=== PATIENT | male | born 1940 | race Caucasian/White ===

== ENCOUNTER → 2017-10-22 09:53 | Outpatient (CLI) | payer MEDICARE, SELFPAY | PROVIDERS: PCP Family Medicine; Visit Provider Specialist | DX: K40.90 Unilateral inguinal hernia, without obstruction or gangrene, not specified as recurrent (principal); I48.91 Unspecified atrial fibrillation | CPT/HCPCS: 93005 ==

== ENCOUNTER 2017-11-06 10:54 | Day surgery (SDC) | payer MEDICARE, SELFPAY ==
[2017-11-06] VITALS (11 sets, daily range): BP systolic 145–187; BP diastolic 77–102; PULSE 70–84; RESP 10–16; TEMP 36–36.2; O2SAT 95–99; BMI 35.2
[2017-11-06] MEDS: LACTATED RINGERS 1,000 ML 100 ML IV (11:25)
--- NOTE | 2017-11-06 12:09 | PM.PREOP ---
Pre-operative Note Interval Note Pre-op Check: History & Physical Reviewed by Physician and Exam Performed H&P completed within 30 days and has changed as indicated here:: none
[2017-11-06] MEDS: CEFAZOLIN 2 GM/100 ML FROZ.PIGGY IV (13:10)
--- NOTE | 2017-11-06 13:30 | SUR.OPER ---
Supine on padded OR bed, head on pillow, arm padded and tucked at side, legs uncrossed, safety belt at thigh, tape over blanket over lower legs .
[2017-11-06] MEDS: BUPIVACAINE 0.5% (PF) 30 ML VIAL INJ (13:39)
--- NOTE | 2017-11-06 14:12 | PM.OP.1 ---
Operative Date/Time/Diagnoses - Date of procedure: 11/06/17 Time of procedure: 14:12 Post-op diagnosis: same (Indirect hernia) Procedure & Clinicians Procedure: Repair of right inguinal hernia with plug and patch technique Same procedure as scheduled: Yes Indications: Symptomatic hernia Surgeon: Brenden Wright Click Yes if Unassisted: Yes Anesthesia Type: General Operative Notes Findings: Indirect hernia Closure Type: primary Specimen(s): none sent Implants & Drains: Mesh Estimated Blood Loss (mL): 5 Blood products transfused: none Procedure in detail: The patient was placed supine on the operating room table and underwent general LMA anesthesia. He was prepped and draped in the usual fashion. A transverse incision was made overlying the internal ring and carried down to the level of the external oblique. The external oblique was opened parallel with its fibers through the external ring. The cord structures were elevated. The cremaster was opened proximally and search made for an indirect sac. There was a large sac identified and from surrounding structures. It was opened and found to have no contents. Was suture ligated with 2 0 silk at the level of the deep epigastric vessels. The distal portion was transected and removed and the stump was allowed to retract. A large plug was placed in the defect created by this hernia. It was tacked into place with interrupted 0 Tycron sutures. The floor was examined and was found to be weakened. A patch was placed across the floor and tacked at the pubic tubercle, the posterior lamella of the anterior rectus sheath, the ilioinguinal ligament, and superior lateral to the cord. The opening was modified as necessary to prevent tight constriction of the cord. Sutures of 0 Tycron were used to secure the mesh. The external oblique was closed with a running 3 0 Polysorb. The subcu was closed with interrupted 3 0 Polysorb. The skin was closed with a running 4 0 Polysorb subcuticular stitch and Steri-Strips. Dressing was applied, the patient was awakened, and the patient was taken to the recovery area in good condition. Complications: none Condition: stable Disposition: PACU Plan for aftercare: Follow-up in office in about 10-14 days
--- NOTE | 2017-11-06 14:16 | P.OP_ITS ---
Operative Date/Time/Diagnoses - Date of procedure: 11/06/17 Time of procedure: 14:12 Post-op diagnosis: same (Indirect hernia) Procedure & Clinicians Procedure: Repair of right inguinal hernia with plug and patch technique Same procedure as scheduled: Yes Indications: Symptomatic hernia Surgeon: Brenden Wright Click Yes if Unassisted: Yes Anesthesia Type: General Operative Notes Findings: Indirect hernia Closure Type: primary Specimen(s): none sent Implants & Drains: Mesh Estimated Blood Loss (mL): 5 Blood products transfused: none Procedure in detail: The patient was placed supine on the operating room table and underwent general LMA anesthesia. He was prepped and draped in the usual fashion. A transverse incision was made overlying the internal ring and carried down to the level of the external oblique. The external oblique was opened parallel with its fibers through the external ring. The cord structures were elevated. The cremaster was opened proximally and search made for an indirect sac. There was a large sac identified and from surrounding structures. It was opened and found to have no contents. Was suture ligated with 2 0 silk at the level of the deep epigastric vessels. The distal portion was transected and removed and the stump was allowed to retract. A large plug was placed in the defect created by this hernia. It was tacked into place with interrupted 0 Tycron sutures. The floor was examined and was found to be weakened. A patch was placed across the floor and tacked at the pubic tubercle , the posterior lamella of the anterior rectus sheath, the ilioinguinal ligament , and superior lateral to the cord. The opening was modified as necessary to prevent tight constriction of the cord. Sutures of 0 Tycron were used to secure the mesh. The external oblique was closed with a running 3 0 Polysorb. The subcu was closed with interrupted 3 0 Polysorb. The skin was closed with a running 4 0 Polysorb subcuticular stitch and Steri-Strips. Dressing was applied , the patient was awakened, and the patient was taken to the recovery area in good condition. Complications: none Condition: stable Disposition: PACU Plan for aftercare: Follow-up in office in about 10-14 days
[2017-11-06] MEDS: fentaNYL 100 MCG/2 ML INJ 50 MCG IV (14:21)
[2017-11-06] MEDS: OXYCODONE/ACETAMINOPHEN 5/325 TABLET 1 TAB PO ×2 (14:44→14:53)
== END 2017-11-06 15:39 ==
PROVIDERS: PCP Family Medicine; Visit Provider Specialist
PROC: (CPT 49505; principal; 2017-11-06 12:00)
DX: K40.90 Unilateral inguinal hernia, without obstruction or gangrene, not specified as recurrent (principal); I48.91 Unspecified atrial fibrillation; Z79.01 Long term (current) use of anticoagulants
CPT/HCPCS: 49505; C1781; J0690; J1100; J2405; J2704; J3010

== ENCOUNTER → 2017-11-20 13:54 | Outpatient (CLI) | payer MEDICARE, SELFPAY ==
[2017-11-20 15:28] LABS: Prostate Specific Antigen Scrn 0.113 ng/mL (0.1-4.0)
== END ==
PROVIDERS: PCP Family Medicine; Visit Provider Specialist
DX: N40.0 Benign prostatic hyperplasia without lower urinary tract symptoms (principal)
CPT/HCPCS: 36415; G0103

== ENCOUNTER → 2018-03-04 11:51 | Outpatient (CLI) | payer MEDICARE, SELFPAY ==
[2018-03-04 12:58] LABS: Alanine Aminotransferase 26 IU/L (21-72); Albumin 3.8 g/dL (3.5-5.0); Albumin Globulin Ratio 1.4 (1.0-2.8); Alkaline Phosphatase 46 U/L (38-126); Aspartate Aminotransferase 26 IU/L (17-59); BUN Creatinine Ratio 16.3 (6-22); Bilirubin Total 0.5 mg/dL (0.2-1.3); Blood Urea Nitrogen 13 mg/dL (9-20); Carbon Dioxide 28 mmol/L (22-32); Chloride 103 mmol/L (98-107); Estimated Glomerular Filt Rate > 60.0 mL/min (>60); Globulin 2.7 g/dL (1.7-4.1); Glucose 94 mg/dL (80-110); HEMOLYSIS < 15 (0-50); Potassium 4.9 mmol/L (3.4-5.1); Sodium 140 mmol/L (137-145); Total Protein 6.5 g/dL (6.3-8.2)
[2018-03-04 13:37] LABS: Thyroid Stimulating Hormone 1.28 uIU/mL (0.47-4.68)
== END ==
PROVIDERS: PCP Family Medicine; Visit Provider Family Medicine
DX: I10 Essential (primary) hypertension (principal); I48.91 Unspecified atrial fibrillation; Z51.81 Encounter for therapeutic drug level monitoring
CPT/HCPCS: 36415; 80053; 84443

== ENCOUNTER → 2019-06-27 16:25 | Outpatient (CLI) | payer MEDICARE, SELFPAY ==
--- NOTE | 2019-06-27 16:27 | DI.RAD.S_ITS ---
PROCEDURE: XR SHOULDER LT MIN 2V INDICATIONS: Progressive left shoulder pain TECHNIQUE: 3 views of the shoulder were acquired. COMPARISON: [facility], , SHOULDER 1 VIEW LEFT, 05/09/2016, 10:39. FINDINGS: Bones: Grossly unchanged appearance of reverse polarity left shoulder arthroplasty. Hardware appears intact. No fracture. Previous postsurgical soft tissue changes appear improved Soft tissues: No suspicious soft tissue calcifications. IMPRESSION: Unchanged alignment Dictated by: Taiwo Arizmendi M.D. on 06/27/2019 at 17:56 Approved by: Taiwo Arizmendi M.D. on 06/27/2019 at 17:57
== END ==
PROVIDERS: PCP Family Medicine; Visit Provider Family Medicine
DX: M25.512 Pain in left shoulder (principal); G89.4 Chronic pain syndrome
CPT/HCPCS: 73030

== ENCOUNTER → 2019-11-27 11:02 | Outpatient (CLI) | payer MEDICARE, SELFPAY ==
--- NOTE | 2019-11-27 11:05 | DI.RAD.S_ITS ---
PROCEDURE: XR SHOULDER LT MIN 2V INDICATIONS: shoulder pain post total replacement TECHNIQUE: 3 views of the shoulder were acquired. COMPARISON: [facility], CR, SHOULDER MIN 2VW (LT), 10/14/2014, 8:38. [facility], CR, XR SHOULDER LT MIN 2V, 06/27/2019, 16:27. [facility], CR, SHOULDER 1 VIEW LEFT, 05/09/2016, 10:39. FINDINGS: Bones: No fractures or dislocations. No suspicious bony lesions. A curvilinear osseous component of the acromium appears positioned above the humeral arthroplasty upper margin, separate from the scapula as was previously the case 06/27/19. Visualized ribs appear intact. Soft tissues: No suspicious soft tissue calcifications. IMPRESSION: Stable postoperative change after left total shoulder arthroplasty, no evidence of device loosening or disruption of the arthroplasty components. Dictated by: Dallin Kirby M.D. on 11/27/2019 at 12:11 Approved by: Dallin Kirby M.D. on 11/27/2019 at 12:14
== END ==
PROVIDERS: PCP Family Medicine; Referring Provider Family Medicine; Visit Provider Family Medicine
DX: M25.512 Pain in left shoulder (principal); Z96.612 Presence of left artificial shoulder joint
CPT/HCPCS: 73030

== ENCOUNTER → 2020-03-31 16:52 | Outpatient (CLI) | payer MEDICARE, SELFPAY ==
[2020-03-31 17:53] LABS: Add Manual Diff / Slide Review NO; Basophils Absolute Auto 100 /uL (0-100); Basophils Percent Auto 0.9 % (0-2); Eosinophils Absolute Auto 300 /uL (0-450); Hematocrit 37.5 % (41-53); Hemoglobin 12.3 g/dL (13.5-17.5); Lymphocytes Absolute Auto 1800 /uL (1100-4500); Lymphocytes Percent Auto 28.5 % (25-40); Mean Corpuscular HGB Conc 32.8 % (30-36); Mean Corpuscular Hemoglobin 30.4 PG (26-34); Mean Corpuscular Volume 92.5 fL (80-100); Monocytes Absolute Auto 700 /uL (0-900); Monocytes Percent Auto 10.3 % (3-14); Neutrophils Absolute Auto 3600 /uL (1500-7000); Neutrophils Percent Auto 56.3 % (50-75); Platelet Count 217 X10^3/uL (150-400); Red Blood Cell Count 4.06 X10^6/uL (4.5-5.9); Red Cell Distribution Width 14.1 % (11.6-14.8); White Blood Cell Count 6.4 X10^3/uL (4.5-11.0)
[2020-03-31 18:28] LABS: Alanine Aminotransferase 13 IU/L (<50); Albumin 3.9 g/dL (3.5-5.0); Albumin Globulin Ratio 1.6 (1.0-2.8); Alkaline Phosphatase 59 U/L (38-126); Aspartate Aminotransferase 25 IU/L (17-59); BUN Creatinine Ratio 19.2 (6-22); Bilirubin Total 0.6 mg/dL (0.2-1.3); Blood Urea Nitrogen 19 mg/dL (9-20); Calcium 8.9 mg/dL (8.4-10.2); Carbon Dioxide 30 mmol/L (22-32); Chloride 99 mmol/L (98-107); Estimated Glomerular Filt Rate > 60.0 mL/min (>60); Globulin 2.4 g/dL (1.7-4.1); Glucose 90 mg/dL (80-110); HEMOLYSIS < 15 (0-50); Potassium 4.8 mmol/L (3.4-5.1); Sodium 133 mmol/L (137-145); Total Protein 6.3 g/dL (6.3-8.2)
== END ==
PROVIDERS: PCP Family Medicine; Referring Provider Family Medicine; Visit Provider Family Medicine
DX: R10.11 Right upper quadrant pain (principal)
CPT/HCPCS: 36415; 80053; 85025

== ENCOUNTER → 2020-04-12 07:59 | Outpatient (CLI) | payer MEDICARE, SELFPAY ==
--- NOTE | 2020-04-12 08:00 | DI.US.S_ITS ---
PROCEDURE: US ABDOMEN LIMITED INDICATIONS: RIGHT UPPER QUADRANT ABDOMINAL PAIN TECHNIQUE: Real-time scanning was performed of the abdominal, with image documentation. COMPARISON: [facility], US, ABDOMEN LIMITED, 05/15/2017, 11:13. FINDINGS: Liver: Normal in size. Increased in echogenicity. Portal vein demonstrates expected hepatopetal flow. Gallbladder: Nondilated. A thin layer of echogenic debris. No shadowing or twinkle artifact. No mobility is demonstrated. Normal gallbladder wall thickness. No pericholecystic fluid. Negative sonographic Pelletier's sign. Biliary ducts: Intrahepatic bile ducts are non-dilated. Extrahepatic bile duct caliber measures 5 mm. Normal is 6-7 mm or less in diameter, or 10 mm or less post-cholecystectomy. Pancreas: Not well seen. Spleen: Spleen is normal in size and homogeneous in echotexture. Right kidney: No hydronephrosis. IMPRESSION: 1. No acute cholecystitis. 2. A small amount of gallbladder sludge. No gallstones identified. 3. No biliary ductal dilatation seen. 4. Increased hepatic echogenicity most consistent with hepatic steatosis. Other forms of hepatocellular disease could have similar appearance. Dictated by: Adrián Weller M.D. on 04/12/2020 at 9:32 Approved by: Adrián Weller M.D. on 04/12/2020 at 9:36
== END ==
PROVIDERS: PCP Family Medicine; Referring Provider Family Medicine; Visit Provider Family Medicine
DX: R10.11 Right upper quadrant pain (principal); K83.8 Other specified diseases of biliary tract
CPT/HCPCS: 76705

== ENCOUNTER → 2020-04-26 09:33 | Outpatient (CLI) | payer MEDICARE, SELFPAY | PROVIDERS: PCP Family Medicine; Referring Provider Family Medicine; Visit Provider Family Medicine | DX: Z12.5 Encounter for screening for malignant neoplasm of prostate (principal); N40.0 Benign prostatic hyperplasia without lower urinary tract symptoms | CPT/HCPCS: 36415; 84153 ==

== ENCOUNTER → 2020-08-02 17:19 | Outpatient (CLI) | payer MEDICARE, SELFPAY ==
[2020-08-04 07:34] LABS: Rubeola Measles IgG > 300.0 AU/mL (Immune >16.4)
== END ==
PROVIDERS: PCP Family Medicine; Referring Provider Family Medicine; Visit Provider Family Medicine
DX: Z01.84 Encounter for antibody response examination (principal)
CPT/HCPCS: 36415; 86765

== ENCOUNTER → 2020-08-23 10:46 | Outpatient (CLI) | payer MEDICARE, SELFPAY ==
--- NOTE | 2020-08-23 10:47 | DI.RAD.S_ITS ---
PROCEDURE: XR CHEST 2V INDICATIONS: Progressive shortness of breath, coarse breath sounds on exa TECHNIQUE: 2 views of the chest were acquired. COMPARISON: [facility], , CHEST 2 VIEW, 08/17/2016, 16:35. [facility], , CHEST 1 VIEW, 05/31/2014, 6:47. FINDINGS: Surgical changes and devices: Left total shoulder arthroplasty. Moderately severe right shoulder arthritis.. Lungs and pleura: Lungs are clear. No pleural effusions or pneumothorax. Mediastinum: Mediastinal contours are normal. Heart size is normal. Bones and chest wall: No suspicious bony abnormalities. Soft tissues appear unremarkable. IMPRESSION: No acute disease, prior left total shoulder arthroplasty. Source of current symptoms is not seen. Dictated by: Dallin Kirby M.D. on 08/23/2020 at 13:36 Approved by: Dallin Kirby M.D. on 08/23/2020 at 13:38
== END ==
PROVIDERS: PCP Family Medicine; Referring Provider Family Medicine; Visit Provider Family Medicine
DX: R05 Cough (principal); R06.02 Shortness of breath
CPT/HCPCS: 71046

== ENCOUNTER → 2021-01-21 10:00 | Outpatient (CLI) | payer MEDICARE, SELFPAY ==
[2021-01-21 16:37] LABS: Alanine Aminotransferase 17 IU/L (<50); Albumin 3.6 g/dL (3.5-5.0); Albumin Globulin Ratio 1.3 (1.0-2.8); Alkaline Phosphatase 55 U/L (38-126); Aspartate Aminotransferase 26 IU/L (17-59); BUN Creatinine Ratio 15.7 (6-22); Bilirubin Total 0.6 mg/dL (0.2-1.3); Blood Urea Nitrogen 14 mg/dL (9-20); Calcium 9.2 mg/dL (8.4-10.2); Carbon Dioxide 26 mmol/L (22-32); Chloride 99 mmol/L (98-107); Estimated Glomerular Filt Rate > 60.0 mL/min (>60); Globulin 2.8 g/dL (1.7-4.1); Glucose 101 mg/dL (80-110); HEMOLYSIS < 15 (0-50); Potassium 4.5 mmol/L (3.4-5.1); Sodium 130 mmol/L (137-145); Total Protein 6.4 g/dL (6.3-8.2)
[2021-01-22 09:38] LABS: PSA, Total 0.5 ng/mL (0.0-4.0)
== END ==
PROVIDERS: PCP Family Medicine; Referring Provider Family Medicine; Visit Provider Family Medicine
DX: R33.9 Retention of urine, unspecified (principal); Z12.5 Encounter for screening for malignant neoplasm of prostate; N40.0 Benign prostatic hyperplasia without lower urinary tract symptoms
CPT/HCPCS: 36415; 80053; 84153; 84154

== ENCOUNTER → 2021-08-04 11:39 | Outpatient (CLI) | payer MEDICARE, SELFPAY ==
[2021-08-04 12:51] LABS: Appearance Urine UA CLEAR; Bilirubin Urine UA NEGATIVE (NEGATIVE); Color Urine UA YELLOW; Glucose Urine UA NEGATIVE (Negative); Ketones Urine UA NEGATIVE (NEGATIVE); Leukocyte Esterase Urine UA NEGATIVE (NEGATIVE); Nitrite Urine UA NEGATIVE (Negative); Occult Blood Urine UA NEGATIVE (Negative); Protein Urine UA NEGATIVE (Negative); Specific Gravity Urine UA <=1.005 (1.000-1.035); Urobilinogen Urine UA 0.2 E.U./dL (0.2)
[2021-08-04 12:59] LABS: Bacteria Urine None Seen; RBC Urine None Seen (0-5/HPF); Urine Comments Microscopic Normal; WBC Urine None Seen (0-5/HPF)
[2021-08-04 13:00] LABS: Culture Indicated Urine Cult Not Indicated
== END ==
PROVIDERS: PCP Family Medicine; Referring Provider Urology; Visit Provider Urology
DX: R30.0 Dysuria (principal); R35.0 Frequency of micturition
CPT/HCPCS: 81001

== ENCOUNTER → 2021-08-11 10:49 | Outpatient (CLI) | payer MEDICARE, SELFPAY ==
--- NOTE | 2021-08-11 10:52 | DI.RAD.S_ITS ---
PROCEDURE: XR HUMERUS LT 2V INDICATIONS: left arm pain after fall TECHNIQUE: 2 views of the humerus were acquired. COMPARISON: None. FINDINGS: Bones: No fractures or dislocations. No suspicious bony lesions. Total left shoulder arthroplasty hardware intact. Soft tissues: No suspicious soft tissue calcifications. IMPRESSION: Total left shoulder arthroplasty hardware in place. No hardware failure or loosening. No fracture. Approved by: Omid East M.D. on 08/11/2021 at 13:49
--- NOTE | 2021-08-11 10:52 | DI.RAD.S_ITS ---
PROCEDURE: XR SHOULDER LT MIN 2V INDICATIONS: left arm pain after fall TECHNIQUE: 3 views of the shoulder were acquired. COMPARISON: [facility], CR, XR SHOULDER LT MIN 2V, 11/27/2019, 11:13. FINDINGS: Bones: Again noted is prior reverse left shoulder arthroplasty. Left shoulder alignment is unchanged from prior study. No gross hardware loosening or failure. No fractures or dislocations. No suspicious bony lesions. Visualized ribs appear intact. Soft tissues: No suspicious soft tissue calcifications. IMPRESSION: Prior left shoulder arthroplasty. No acute fracture or dislocation. No gross hardware complication. Dictated by: Jacob Yan M.D. on 08/11/2021 at 11:52 Approved by: Jacob Yan M.D. on 08/11/2021 at 11:53
== END ==
PROVIDERS: PCP Family Medicine; Referring Provider Family Medicine; Visit Provider Family Medicine
DX: M79.602 Pain in left arm (principal); Z96.612 Presence of left artificial shoulder joint
CPT/HCPCS: 73030; 73060

== ENCOUNTER → 2021-09-22 09:44 | Outpatient (CLI) | payer MEDICARE, SELFPAY | PROVIDERS: PCP Family Medicine; Visit Provider Urology | DX: R30.0 Dysuria (principal); N40.0 Benign prostatic hyperplasia without lower urinary tract symptoms; R33.9 Retention of urine, unspecified; R35.1 Nocturia; R39.198 Other difficulties with micturition | CPT/HCPCS: 51798; 81002; 87086; 99213 ==

== ENCOUNTER → 2021-10-11 08:31 | Outpatient (CLI) | payer MEDICARE, SELFPAY ==
[2021-10-11 09:11] LABS: INR 1.3 (0.9-1.3)
== END ==
PROVIDERS: PCP Family Medicine; Referring Provider Family Medicine; Visit Provider Family Medicine
DX: Z79.01 Long term (current) use of anticoagulants (principal)
CPT/HCPCS: 36415; 85610

== ENCOUNTER → 2022-01-16 11:10 | Outpatient (CLI) | payer MEDICARE, SELFPAY ==
[2022-01-16 13:10] LABS: INR 1.7 (0.9-1.3); Prothrombin Time 19.2 SECONDS (10.1-12.7)
[2022-01-16 13:31] LABS: Alanine Aminotransferase 10 IU/L (<50); Albumin 3.4 g/dL (3.5-5.0); Albumin Globulin Ratio 1.2 (1.0-2.8); Alkaline Phosphatase 48 U/L (38-126); Aspartate Aminotransferase 24 IU/L (17-59); Bilirubin Total 0.6 mg/dL (0.2-1.3); Blood Urea Nitrogen 7 mg/dL (9-20); Calcium 8.5 mg/dL (8.4-10.2); Carbon Dioxide 28 mmol/L (22-32); Chloride 100 mmol/L (98-107); Estimated Glomerular Filt Rate > 60 mL/min (>60); Globulin 2.8 g/dL (1.7-4.1); Glucose 99 mg/dL (80-110); HEMOLYSIS < 15 (0-50); Potassium 4.4 mmol/L (3.4-5.1); Sodium 131 mmol/L (137-145); Total Protein 6.2 g/dL (6.3-8.2)
[2022-01-19 06:00] LABS: PSA Free % 56.7 % (.); PSA, Total 0.3 ng/mL (0.0-4.0)
== END ==
PROVIDERS: PCP Family Medicine; Referring Provider Family Medicine; Visit Provider Family Medicine
DX: Z79.01 Long term (current) use of anticoagulants (principal); N40.0 Benign prostatic hyperplasia without lower urinary tract symptoms; R33.9 Retention of urine, unspecified; R34 Anuria and oliguria
CPT/HCPCS: 36415; 80053; 84153; 84154; 85610

== ENCOUNTER → 2022-02-14 11:39 | Outpatient (CLI) | payer MEDICARE, SELFPAY ==
--- NOTE | 2022-02-14 11:41 | DI.CT.S_ITS ---
PROCEDURE: CT CHEST WO CON INDICATIONS: course breath sounds, weight loss, smoking history TECHNIQUE: Noncontrast 5 mm thick sections acquired from the pulmonary apices to the posterior costophrenic angles. 1 mm lung window, 5 mm thick coronal and sagittal and 7 mm axial MIP reformats were then acquired. For radiation dose reduction, the following was used: automated exposure control, adjustment of mA and/or kV according to patient size. COMPARISON: [facility], CR, XR CHEST 2V, 08/23/2020, 10:50. FINDINGS: Image quality: Diagnostic. Lungs and pleura: Mild upper lobe predominant pulmonary emphysematous changes. There is bilateral mild perihilar airway thickening predominantly in the bilateral lower lobes, right greater than left. There is associated peripheral bronchiectasis of the posteromedial right lower lobe as well as the medial left lower lobe. Associated reticular prominence in the posterior aspect of the lower lobes bilaterally. There is also suggestion of faint tree-in-bud opacities involving the posterior aspect of the bilateral lower lobes as well as the posterior right middle lobe and posterior right upper lobe. No septal thickening or nodularity. A few ill-defined patchy consolidations of the posterior left lower lobe are noted. For example a 7 mm left lower lobe ill-defined nodule seen on image 214/series 4. No pleural effusions or pneumothorax. Central and peripheral airways are patent. Mediastinum: Heart size is mildly enlarged. No pericardial effusion. Moderate atherosclerotic calcifications of the coronary arteries. No mediastinal adenopathy by size criteria. Thoracic aorta and central pulmonary arteries are normal in size. Aortic arch atherosclerotic calcifications. Esophagus is normal in caliber. No hiatal hernia. Bones and chest wall: No suspicious bony lesions. No acute vertebral body compression fractures. No axillary or supraclavicular adenopathy by size criteria. Thyroid gland is unremarkable . Status post left shoulder arthroplasty Abdomen: Visualized upper abdominal solid organs and bowel loops appear normal in the absence of contrast. IMPRESSION: 1. Suggestion of multiple foci of faint tree-in-bud opacities involving the posterior aspect of the bilateral lower lobes, posterior right middle lobe, and posterior right upper lobe with associated mild bronchiectasis of the posterior lower lobes . There is also mild bilateral perihilar airway thickening predominantly seen in the lower lobes. Findings may represent sequela of chronic aspiration or other infectious/inflammatory process. There also a few scattered ill-defined nodular densities in the bilateral lower lobes which may represent inflammatory or infectious nodules such as an atypical mycobacterial infection. Recommend clinical correlation as well as short interval follow-up CT in 3-6 months. 2. Mild upper lobe predominant pulmonary emphysema. 3. Mild cardiomegaly. 4. Moderate atherosclerosis. Dictated by: Marco A Ponce M.D. on 02/14/2022 at 13:41 Approved by: Marco A Ponce M.D. on 02/14/2022 at 13:54
== END ==
PROVIDERS: PCP Family Medicine; Referring Provider Family Medicine; Visit Provider Family Medicine
DX: J43.9 Emphysema, unspecified (principal); R63.4 Abnormal weight loss; R09.89 Other specified symptoms and signs involving the circulatory and respiratory systems; R91.8 Other nonspecific abnormal finding of lung field; Z87.891 Personal history of nicotine dependence; I51.7 Cardiomegaly; I70.0 Atherosclerosis of aorta
CPT/HCPCS: 71250

== ENCOUNTER → 2022-03-28 15:32 | Outpatient (CLI) | payer MEDICARE, SELFPAY ==
[2022-03-28 17:41] LABS: Influenza A - CEPHEID Flu A NEGATIVE (NEGATIVE); Influenza B - CEPHEID Flu B NEGATIVE (NEGATIVE); Respiratory Syncytial Virus Negative (Negative)
[2022-03-28 17:59] LABS: COVID-19 CEPHEID PCR (VTM/NP) Negative (Negative)
== END ==
PROVIDERS: PCP Family Medicine; Visit Provider Student in an Organized Health Care Education/Training Program
DX: R05.9 Cough, unspecified (principal); R06.89 Other abnormalities of breathing
CPT/HCPCS: 0241U

== ENCOUNTER → 2022-03-28 16:01 | Outpatient (CLI) | payer MEDICARE, SELFPAY ==
--- NOTE | 2022-03-28 16:08 | DI.RAD.S_ITS ---
PROCEDURE: XR CHEST 2V INDICATIONS: rhonchi, possible aspiration pna TECHNIQUE: 2 views of the chest were acquired. COMPARISON: [facility], , XR CHEST 2V, 08/23/2020, 10:50. FINDINGS: Surgical changes and devices: None. Lungs and pleura: Lungs are clear. No pleural effusions or pneumothorax. The lung volumes are large and the diaphragms are flattened suggesting emphysema. Mediastinum: Mediastinal contours are normal. Heart size is normal. Bones and chest wall: No suspicious bony abnormalities. Soft tissues appear unremarkable. IMPRESSION: No acute cardiopulmonary findings. Emphysematous change. Dictated by: Brooke Yoo M.D. on 03/28/2022 at 16:51 Approved by: Brooke Yoo M.D. on 03/28/2022 at 16:52
== END ==
PROVIDERS: PCP Family Medicine; Referring Provider Student in an Organized Health Care Education/Training Program; Visit Provider Student in an Organized Health Care Education/Training Program
DX: R05.9 Cough, unspecified (principal); R06.89 Other abnormalities of breathing; R53.83 Other fatigue; R09.89 Other specified symptoms and signs involving the circulatory and respiratory systems
CPT/HCPCS: 0241U; 36415; 71046; 80053; 84145; 85025

== ENCOUNTER → 2022-03-28 16:28 | Outpatient (CLI) | payer MEDICARE, SELFPAY ==
[2022-03-28 16:56] LABS: Add Manual Diff / Slide Review NO; Basophils Absolute Auto 0 /uL (0-100); Basophils Percent Auto 0.7 % (0-2); Eosinophils Absolute Auto 200 /uL (0-450); Eosinophils Percent Auto 3.6 % (2-4); Hematocrit 35.7 % (41-53); Hemoglobin 12.2 g/dL (13.5-17.5); Lymphocytes Absolute Auto 1200 /uL (1100-4500); Lymphocytes Percent Auto 19.6 % (25-40); Mean Corpuscular HGB Conc 34.1 % (30-36); Mean Corpuscular Hemoglobin 30.7 PG (26-34); Mean Corpuscular Volume 89.9 fL (80-100); Monocytes Absolute Auto 600 /uL (0-900); Monocytes Percent Auto 9.8 % (3-14); Neutrophils Absolute Auto 4000 /uL (1500-7000); Neutrophils Percent Auto 66.3 % (50-75); Platelet Count 318 X10^3/uL (150-400); Red Blood Cell Count 3.97 X10^6/uL (4.5-5.9)
[2022-03-28 17:19] LABS: Alanine Aminotransferase 17 IU/L (<50); Albumin 3.8 g/dL (3.5-5.0); Albumin Globulin Ratio 1.1 (1.0-2.8); Alkaline Phosphatase 69 U/L (38-126); Aspartate Aminotransferase 25 IU/L (17-59); BUN Creatinine Ratio 11.7 (6-22); Bilirubin Total 0.5 mg/dL (0.2-1.3); Blood Urea Nitrogen 11 mg/dL (9-20); Calcium 8.8 mg/dL (8.4-10.2); Carbon Dioxide 27 mmol/L (22-32); Chloride 95 mmol/L (98-107); Estimated Glomerular Filt Rate > 60 mL/min (>60); Globulin 3.6 g/dL (1.7-4.1); Glucose 115 mg/dL (80-110); HEMOLYSIS < 15 (0-50); Potassium 4.2 mmol/L (3.4-5.1); Sodium 132 mmol/L (137-145); Total Protein 7.4 g/dL (6.3-8.2)
[2022-03-28 17:34] LABS: Procalcitonin 0.03 ng/mL (<0.5)
== END ==
PROVIDERS: PCP Family Medicine; Referring Provider Student in an Organized Health Care Education/Training Program; Visit Provider Student in an Organized Health Care Education/Training Program
DX: R05.9 Cough, unspecified (principal); R09.89 Other specified symptoms and signs involving the circulatory and respiratory systems; R53.83 Other fatigue
CPT/HCPCS: 36415; 80053; 84145; 85025

== ENCOUNTER → 2022-10-17 09:08 | Outpatient (CLI) | payer MEDICARE, OTHER, SELFPAY ==
--- NOTE | 2022-10-17 09:10 | DI.US.S_ITS ---
PROCEDURE: US ABDOMEN LIMITED INDICATIONS: LEFT INGUINAL BULGE TECHNIQUE: Real-time focused scanning was performed of the abdomen, with image documentation. COMPARISON: [facility], CT, PELVIS WITHOUT CONTRAST, 06/08/2017, 8:53. [facility], US, US ABDOMEN LIMITED, 04/12/2020, 8:29. FINDINGS: At the area of clinical concern within the left inguinal region, there is a hernia seen which contains a bowel loop, which moves with Valsalva maneuver and measures 6.1 x 1.8 x 3.3 cm. There is a 1.2 cm fascial defect. IMPRESSION: Reducible bowel containing left inguinal hernia. Surgical consultation is recommended. If clinically appropriate, a pelvis CT with at least IV contrast may be helpful for further evaluation. Dictated by: Solomon Silva M.D. on 10/17/2022 at 11:14 Approved by: Solmoon Silva M.D. on 10/17/2022 at 11:17
== END ==
PROVIDERS: PCP Family Medicine; Referring Provider Family Medicine; Visit Provider Family Medicine
DX: K40.90 Unilateral inguinal hernia, without obstruction or gangrene, not specified as recurrent (principal); R19.00 Intra-abdominal and pelvic swelling, mass and lump, unspecified site
CPT/HCPCS: 76705

== ENCOUNTER 2022-11-14 10:35 | Day surgery (SDC) | payer MEDICARE, OTHER, SELFPAY ==
[2022-11-09 08:40] VITALS: BMI 18.8
[2022-11-14] VITALS (9 sets, daily range): BP systolic 175–217; BP diastolic 81–98; PULSE 61–67; RESP 9–19; TEMP 36.2–36.8; O2SAT 93–100; BMI 18.8
[2022-11-14] MEDS: LACTATED RINGERS 1,000 ML 42 ML IV (11:32)
--- NOTE | 2022-11-14 11:40 | PM.PREOP ---
Pre-operative Note COVID-19 COVID-19 status: Not tested Interval Note History & Physical reviewed/Exam performed by Physician: Yes Changes to H&P: No ASA Class (for procedural sedation): III
[2022-11-14] MEDS: CEFAZOLIN 2 GM/100 ML PREMIX 100 ML IV (12:43)
--- NOTE | 2022-11-14 12:57 | SUR.OPER ---
Supine on padded OR bed, head on pillow, arms secured on padded arm boards at <90 degrees abduction, legs uncrossed, safety belt at thigh, tape over blanket over lower legs.
[2022-11-14] MEDS: BUPIVACAINE 0.5% (PF) 30 ML, EPINEPHrine 0.15 MG INJ (13:04)
--- NOTE | 2022-11-14 13:48 | PM.OP.1 ---
Operative Date/Time/Diagnoses Date of procedure: 11/14/22 Time of procedure: 13:49 Pre-op diagnosis: Left inguinal hernia Post-op diagnosis: same Procedure & Clinicians Procedure: Open left inguinal hernia repair with mesh Same procedure as scheduled: Yes Surgeon: Ravin Tenorio Metal Ceiling Builder: Riley Lewis Anesthesia Type: General Operative Notes Procedure in detail: Preoperative antibiotic was administered. The patient was brought to the operating room and placed on the table in supine position general anesthesia was induced. The left groin was prepped and draped in the normal fashion and a time-out was performed. Roughly 10 mL of local anesthetic were injected into the skin and subcutaneous adipose tissue over the left groin. A 6 cm incision was made over the left inguinal canal. Dissection was carried down through the subcutaneous adipose tissue. A bridging vein was cauterized. We exposed the external oblique aponeurosis in the direction of the fibers. Additional local was injected deep to the aponeurosis. A 15 blade scalpel was used to dhruv the external oblique aponeurosis. Metzenbaum scissors were used to carefully open the aponeurosis in the direction of the fibers taking care not to injure the underlying ilioinguinal nerve which was well seen and protected. We completely exposed the inguinal canal. The cord was dissected free from the inguinal ligament and floor of the inguinal canal and the external oblique aponeurosis was dissected off of the internal oblique taking care not to injure the hypogastric nerve. We encircled the cord with a Daniel drain for retraction. A large indirect sac was found and dissected off of the cord structures. We placed a polypropylene mesh over the inguinal canal floor. The mesh was secured with multiple interrupted 3-0 Prolene sutures to the pubic tubercle and shelving edge of the inguinal ligament as well as to the conjoint tendon medially. We overlapped the tails to recreate an internal ring and secured the medial tail to the inguinal ligament with additional sutures. We injected some more local into the fatty tissue in the inguinal canal and cord. Finally, we removed the Daniel drain and closed the external oblique fascia with a running 3-0 Vicryl suture. Skin was closed with interrupted 3-0 Vicryl dermal sutures and a running 4 Monocryl subcuticular stitch. EBL 5 mL The patient was awakened and brought to recovery room. Riley ADHIKARI provided assistance with exposure, retraction and closure of incisions. Post-operative Condition: stable Disposition: PACU
[2022-11-14] MEDS: ACETAMINOPHEN 325 MG TABLET PO ×2 (14:13→14:15)
[2022-11-14] MEDS: OXYCODONE IR 5 MG TABLET PO (14:13)
--- NOTE | 2022-11-14 15:21 | SUR.PHASEII ---
Dr. Woods, anesthesia on this case called regarding patient's hypertension in phase 2 (201/, 217/). Telephone order given to order an extra dose of patient's home carvedilol 12.5 mg PO. Yohannes Mg RN
--- NOTE | 2022-11-14 15:26 | SUR.PHASEII ---
Dr. Woods called, changed order from carvedilol 12.5 mg to losartan 50 mg PO before patient discharges. Okay for patient to take carvedilol dose tonight at home. Yohannes Mg RN
[2022-11-14] MEDS: LOSARTAN 50 MG TABLET PO (15:35)
== END 2022-11-14 15:47 | disposition home or self-care (01) ==
PROVIDERS: PCP Family Medicine; Referring Provider Surgery; Visit Provider Surgery
PROC: (CPT 49505; principal; 2022-11-14 11:45)
DX: K40.90 Unilateral inguinal hernia, without obstruction or gangrene, not specified as recurrent (principal); I48.91 Unspecified atrial fibrillation; Z79.01 Long term (current) use of anticoagulants
CPT/HCPCS: 49505; 85610; J0171; J0690; J1100; J2405; J2704; J3010

== ENCOUNTER → 2022-12-28 08:25 | Outpatient (CLI) | payer MEDICARE, OTHER, SELFPAY ==
--- NOTE | 2022-12-28 08:27 | DI.RAD.S_ITS ---
PROCEDURE: XR LUMBAR SPINE MIN 4V INDICATIONS: LOW BACK PAIN TECHNIQUE: 5 views of the lumbar spine were acquired, including bilateral oblique views. COMPARISON: None. FINDINGS: Bones: 5 nonrib-bearing vertebrae are present. There is trace retrolisthesis of L5 on S1. No vertebral body compression fractures. No suspicious bony lesions. There is a large right lateral osteophyte at L1-L2. Diffuse degenerative disc disease, severe at L2-L3, L3-L4, L4-L5 and L5-S1, tple-bi-ttdnziif at T12-L1 and L1-L2. Severe facet arthropathy at L4-L5 and L5-S1. Note is made of hip and sacroiliac joint degeneration bilaterally. Soft tissues: Overlying bowel gas pattern is normal. Severe atherosclerotic calcifications. Oblique images: No pars defects. IMPRESSION: 1. Severe degenerative disc and facet disease. Dictated by: Stephanie Her M.D. on 12/28/2022 at 12:00 Approved by: Stephanie Her M.D. on 12/28/2022 at 12:02
== END ==
PROVIDERS: PCP Family Medicine; Referring Provider Anesthesiology; Visit Provider Anesthesiology
DX: M51.36 Other intervertebral disc degeneration, lumbar region (principal); M51.37 Other intervertebral disc degeneration, lumbosacral region; M47.816 Spondylosis without myelopathy or radiculopathy, lumbar region; M47.817 Spondylosis without myelopathy or radiculopathy, lumbosacral region; M54.9 Dorsalgia, unspecified; M54.50 Low back pain, unspecified; Z98.890 Other specified postprocedural states
CPT/HCPCS: 72110; 99214

== ENCOUNTER → 2023-01-09 09:22 | Outpatient (CLI) | payer MEDICARE, OTHER, SELFPAY ==
--- NOTE | 2023-01-09 09:24 | DI.MRI.S_ITS ---
PROCEDURE: MR LUMBAR SPINE WO CON INDICATIONS: Low back pain, h/o L5-S1 laminectomy TECHNIQUE: Noncontrast sagittal T1 spin echo and T2 fast echo, sagittal STIR, and T2 fast spin echo through the lumbar spine. In cases with scoliosis, additional coronal T2 fast spin echo may be performed. COMPARISON: [facility], RG, MRI L-SPINE W/O CONTRAST, 07/25/2019, 12:55. [facility], CR, XR LUMBAR SPINE MIN 4V, 12/28/2022, 8:24. [facility], MR, MR LUMBAR SPINE W&WO CON, 03/07/2016, 10:09. FINDINGS: Image quality: This examination is limited by involuntary motion artifact. Alignment and Curvature: There is minimal retrolisthesis at L1-L2, with mild retrolisthesis at L2-L3. Minimal retrolisthesis is seen at L3-L4. Mild anterolisthesis is seen at L4-L5. Mild retrolisthesis is seen at L5-S1. Bone Marrow: Marrow is of normal overall signal. No acute vertebral body compression fractures. Spinal Cord: Conus medullaris terminates at the L1-L2 level. Visualized cord demonstrates normal signal and size. Note is made of clumping of the nerve roots distally. Paraspinous Soft Tissues: No paravertebral masses. T12-L1: Normal appearance. L1-L2: Mild loss of disc height is seen. Loss of disc signal is seen. Moderate disc bulge is seen. There is a mild central disc protrusion. Mild facet joint hypertrophy is seen. Moderate bilateral neural foraminal narrowing is seen. Mild to moderate central canal narrowing is seen. When comparison is made with the prior images, these findings are similar. L2-L3: At least moderate loss of disc height and disc signal can be seen. Reactive marrow endplate changes are seen, which demonstrate mixed T1 weighted and T2-weighted signal, and are attributed to a combination of edema and fatty metaplasia (Modic type I and Modic type II changes). At least moderate disc bulge is seen, with a central disc protrusion. At least moderate facet hypertrophy is seen. Associated hypertrophy of the ligamentum flavum can be seen. There is moderate to severe bilateral neural foraminal narrowing seen, with an associated a degree of compression seen upon the exiting nerve roots. Moderate to severe central canal narrowing is seen at this level. When comparison is made with the prior images, these findings are similar. L3-L4: At least moderate loss of disc height and disc signal can be seen. Reactive marrow endplate changes are seen, which demonstrate mixed T1 weighted and T2-weighted signal, and are attributed to a combination of edema and fatty metaplasia (Modic type I and Modic type II changes). Moderate disc bulge is seen, which is eccentric to the left. Moderate facet joint hypertrophy is seen. There is moderate to severe bilateral neural foraminal narrowing seen, with an associated a degree of compression seen upon the exiting nerve roots. Moderate central canal narrowing is seen. When comparison is made with the prior images, these findings are similar. L4-L5: Severe loss of disc height can be seen, with a degree of bony fusion at this level. At least moderate disc osteophyte complex can be seen. Posteriorly projected endplate osteophytes are seen. Prominent facet hypertrophy can be seen. There is moderate to severe bilateral neural foraminal narrowing seen, with an associated a degree of compression seen upon the exiting nerve roots. Moderate to severe central canal narrowing is seen at this level. When comparison is made with the prior images, these findings are similar. L5-S1: Postoperative change can be seen, with left hemilaminectomy. At least moderate disc bulge is seen. There is a superimposed central disc protrusion. Moderate to prominent facet hypertrophy is seen. There is moderate to severe bilateral neural foraminal narrowing seen, with an associated a degree of compression seen upon the exiting nerve roots. Moderate central canal narrowing is seen. When comparison is made with the prior images, these findings are similar. IMPRESSION: Multiple levels of significant lumbar spine degenerative change can be seen, which are similar to 2020. Several sites of significant neural foraminal narrowing can be seen, with associated exiting nerve root compression. Several levels of significant central canal narrowing can be seen. Clumping of the nerve roots can be seen distally, which is consistent with arachnoiditis. Prior postoperative change, with left L5-S1 hemilaminectomy. Dictated by: Solomon Silva M.D. on 01/09/2023 at 12:05 Approved by: Solomon Silva M.D. on 01/09/2023 at 12:11
== END ==
PROVIDERS: PCP Family Medicine; Referring Provider Anesthesiology; Visit Provider Anesthesiology
DX: M47.816 Spondylosis without myelopathy or radiculopathy, lumbar region (principal); M47.817 Spondylosis without myelopathy or radiculopathy, lumbosacral region; M48.061 Spinal stenosis, lumbar region without neurogenic claudication; M48.07 Spinal stenosis, lumbosacral region; M54.50 Low back pain, unspecified; G89.29 Other chronic pain; Z98.890 Other specified postprocedural states
CPT/HCPCS: 72148

== ENCOUNTER → 2023-01-17 09:45 | Outpatient (CLI) | payer MEDICARE, OTHER, SELFPAY ==
--- NOTE | 2023-01-17 09:47 | DI.CT.S_ITS ---
PROCEDURE: CT CHEST WO CON INDICATIONS: Solitary pulmonary nodule TECHNIQUE: Noncontrast 5 mm thick sections acquired from the pulmonary apices to the posterior costophrenic angles. 1 mm lung window, 5 mm thick coronal and sagittal and 7 mm axial MIP reformats were then acquired. For radiation dose reduction, the following was used: automated exposure control, adjustment of mA and/or kV according to patient size. COMPARISON: [facility], CT, CT CHEST WO CON, 02/14/2022, 11:52. FINDINGS: Lungs and pleura: Previously described ill-defined 7 mm left lower lobe nodule appears resolved since the prior exam. At least 1 new nodule is present however, for example 4 mm at the left lower lobe (3/210). Interval increase in bronchocentric irregular opacity at the right lower lobe, ill-defined and difficult to measure but visually increased (for example series 5, image 49). Basilar predominant centrilobular/tree-in-bud micronodularity redemonstrated. Scattered calcified pleural plaques present as before. No definite pleural effusion. Airway secretions present at the right mainstem bronchus and proximal right lower lobe airways. Mediastinum: Probable multi chamber cardiac enlargement. Multivessel coronary artery calcifications and/or stents. No pericardial effusion. Thoracic aorta and central pulmonary arteries are normal in size. Esophagus is normal in caliber. Bones and chest wall: Left shoulder arthroplasty. No axillary or supraclavicular adenopathy by size criteria. Abdomen: Visualized upper abdominal solid organs and bowel loops appear normal in the absence of contrast. IMPRESSION: 1. Previously described ill-defined left lower lobe nodule appears resolved since the prior exam. At least 1 new nodule is present however, nonspecific. 2. Interval increase in irregular bronchocentric opacity at the right lower lobe, nonspecific, may be infectious/inflammatory such as sequela of aspiration and/or pneumonia. Neoplasm not excludable. 3. Could consider follow-up for above findings in 3-6 months or other interval at clinical discretion. 4. Regions of pulmonary micronodularity present as before suspicious for infectious bronchiolitis and/or aspiration. 5. Calcified pleural plaques present, correlation for prior asbestos exposure may be helpful. Dictated by: Mayank Rojo M.D. on 01/17/2023 at 16:23 Approved by: Mayank Rojo M.D. on 01/17/2023 at 16:37
== END ==
PROVIDERS: PCP Family Medicine; Referring Provider Family Medicine; Visit Provider Family Medicine
DX: R91.1 Solitary pulmonary nodule (principal); J43.9 Emphysema, unspecified; J92.9 Pleural plaque without asbestos
CPT/HCPCS: 71250

== ENCOUNTER → 2023-01-24 08:42 | Outpatient (CLI) | payer MEDICARE, OTHER, SELFPAY ==
--- NOTE | 2023-01-24 08:43 | DI.RAD.S_ITS ---
PROCEDURE: FL BARIUM SWALLOW W SPEECH INDICATIONS: difficulty swallowing COMPARISON: None. TECHNIQUE: Examination was conducted in conjunction with speech pathology per standard protocol. In the lateral projection, filming was performed of the patient swallowing. AP projection filming may also be performed with patient swallowing. COMPARISON: FINDINGS: Function: Laryngeal penetration and aspiration, with large volume vallecular pooling, with thin liquid and nectar thick barium. Morphology: No cricopharyngeal bar is identified. No cervical esophageal webs. No Zenker's diverticulum. No strictures. Poor opening of the cervical esophagus. IMPRESSION: Linear penetration and aspiration, with large volume vallecular pooling. Please see speech pathology report for further discussion. Dictated by: Addy Vines M.D. on 01/28/2023 at 21:45 Approved by: Addy Vines M.D. on 01/28/2023 at 21:47
--- NOTE | 2023-01-24 14:59 | ST.SWALLOW ---
Visit Care Team Role Provider Type Harley Genao MD Attending Provider Physician Primary Care Provider Referring Provider Specialty: Family Practice Address: [address] [place] [address], [facility] Email: [email or web address] Modified Barium Swallow Study [employer]ER Modified Barium Swallow Study Start: 01/24/23 11:05 Freq: Status: Active Protocol: Document 01/24/23 11:05 LNK (Rec: 01/24/23 14:58 LNK [id number]) Modified Barium Swallow Study Total Time Visit Start Time 09:00 Visit Stop Time 10:00 Total Visit Minutes [address] Genao Reason for Referral dysphagia Setting Setting Outpatient Care Patient Information Identification Type Name,Date of Patient History Pt was seen for a Modified Barium Swallow Study at [facility] referral of Dr. Genao. He was accompanied by his . According to chart review, the pt and his , the pt has been experincing difficulty swallowing with coughing and/ or choking on all foods/ liquids. Pt reports that he coughs when eating all foods/ liquids at every meal. He stated that he does not have difficulty with swallowing pills as the pills are typically taken in a yogurt carrier. 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 A CT of pt's chest on 01/17/23 results included: Regions of pulmonary micronodularity present as before suspicious for infectious bronchiolitis and/ or aspiration. Subjective Observations Pt entered the fluoroscopy room in a wheel chair and success fully transferred to the fluoroscopy chair. Instructions and procedures were described for the pt, who indicated he understood and agreed to proceed. Pt was also able to successfully transition from the chair to a standing AP position ( standing) using his cane. Patient Positioning Position View Lat-A/P Imaging Lateral View Textures Administered Trials Presented Thin Liquid via Spoon (IDDSI 0 ),Thin Liquid via Cup (IDDSI 0 ),Mildly Thick Liquid via Spoon (IDDSI 2),Mildly Thick Liquid via Cup (IDDSI 2), Extremely Thick Liquid via Cup (IDDSI 4),Regular (IDDSI 7) Barium Tablet Yes The IDDSI Framework Protocol: IDDSI.1 Oral Impairment Source: The Modified Barium Swallow Impairment Profile (MBSImP??) Lip Closure No labial escape Tongue Control During Bolus Hold Cohesive bolus between tongue to palatal seal Bolus Preparation/Mastication Disorganized chewing/mashing with solid pieces of bolus unchewed Bolus Transport/Lingual Motion Delayed initiation of tongue motion Oral Residue Complete oral clearance Location Floor of mouth Initiation of Pharyngeal Swallow Bolus head at pyriforms Additional Oral Impairment Observations OME indicated mild reduced coordination of the tongue during mastication. Pt's dentition was upper/lower dentures, which were poorly fitted. DKS was observed to be WFL. Pt's speech was 100% intelligible. Oral Phase: Reduced coordination of the tongue during mastication was observed. Bolus hold and control were noted to be WFL. AP transition and swallow initiation were delayed with premature spillage to the pyriforms observed. Pharyngeal Impairment Source: The Modified Barium Swallow Impairment Profile (MBSImP??) Soft Palate Elevation Trace column of contrast between soft palate & pharyngeal wall Laryngeal Elevation Min.sup.move. thyroid cart. w/ min.approx.arytenoids to epiglot.petiole Anterior Hyoid Excursion No anterior movement Epiglottic Movement No inversion Laryngeal Vestibular Closure Incomplete; narrow column air/ contrast in laryngeal vestibule Pharyngeal Stripping Wave Present - diminished Pharyngoesophageal Segment Opening Partial distention/partial duration; partial obstruction of flow Tongue Base Retraction Wide column of contrast/air betwn tongue base & post. pharyngeal wall Pharyngeal Residue Collection of residue within/ on pharyngeal structures Location Diffuse (>3 areas) Additional Pharyngeal Impairment Premature spillage of the Observations bolus head to the pyriforms was observed before swallow was initiated. Weak base of tongue muscles negatively impacted hyolaryngeal elevation, epiglottic inversion and opening of the PES, Pt demonstrated minimal elevation of the larynx and hyoid movement. The epiglottis did not invert for a majority of swallows observed. At best , the epiglottis was seen at a horizontal position with the tip curled up against the posterio pharyngeal wall. Closure of the laryngeal vastibule was incomplete resulting in frequent tracheal aspiration of contrast ( PAS score=8 - below folds, no response or effort, tracheal residue). No reflexive cough was noted. With cuing, the pt' s cough was minimally productive. Pt did demonstrate a delayed throat clear/non- productive cough. His voice was noted to be wet throughout the session. Aspiration was observed most consistently with thin liquids across all trials. Safe swallow strategies (chin tuck, head turn, tuck+turn) were ineffective in preventing aspiration. Casselman thick liquids resulted in less aspiration in upright position and were safely tolerated with a chin tuck. Without chin tuck, aspiration was observed. With semisolid and solid food trials, there was significant pooling of residue within the valeculla. The pt had significant difficulty with safely swallowing solid trials , despite different head positions. This was complicated by a reduction in the extension and duration of the opening on the PES along with ACDF hardware located between C4 and C7. Osteophytes and C5-C5 protruded and altered the width of the esophagus in that area. A/P View Textures Administered Trials Presented Thin Liquid via Spoon (IDDSI 0 ),Mildly Thick Liquid via Spoon (IDDSI 2) The IDDSI Framework Protocol: IDDSI.1 A/P View Observations Pharyngeal Contraction Unilateral bulging Esophageal Clearance Upright Position Complete clearance; esophageal coating Esophageal Function WFL Additional A-P Observations Pt was able to swallow nectar thick liquids but could not move a barium tablet A-P within his mouth. The tablet was spit out. The MBS ended at that point. Clinical Impressions Dysphagia Type Oral,Pharyngeal Findings Please review Oral and Pharyngeal Impairment Summaries for greater detail of pt's swallow function. Overall, the pt presented with a moderately severe oropharyngeal dysphagia. This was supported via the PROMIS Scale v1.0 based on pt repor. Thr PROMIS v.1 score was 63.9 indicating moderate swallow impairment. Overall, the results of the MBSS indicated weak and inefficient pharyngeal strength which resulted in poor bolus control , pharyngeal pooling and frequent aspiration. Improved safety of swallowing was achieved with nectar thick liquids and a chin tuck swallow strategy. Recommended diet: soft and bite-sized solids and nectar thick liquids and use of the chin tuck across all PO intake). The above results and recommendations were discussed with the pt and his . Swallow therapy was recommended along with diet modifications with the pt and his , which was declined. Patient Appropriate for Therapy No: Pt not interested in pursuing therapy Recommendations Diet Liquids Order Mildly Thick (IDDSI 2) Diet Order Soft & Bite-sized (IDDSI 6) Medication Recommendation Whole in Carrier,Crushed in Carrier Additional Dietary Needs Reminders to Use Strategies Aspiration Precautions Recommended Precautions Upright at 90 Degrees,Frequent Rest Periods,Small Bites/Sips ,Chin Tuck,Left Head Turn, Liquids from Cup Treatment Plan Additional Recommended Referrals Recommendation for swallow therapy was declined by pt and his . Therapy Strategy Recommendations Turn Head Left,Chin Tuck, Liquids from Cup Additional Strategies Recommended Therapy strategies (above) described for pt and his . Placement Recommendation After Discharge Home
== END ==
PROVIDERS: PCP Family Medicine; Referring Provider Family Medicine; Visit Provider Family Medicine
DX: R13.10 Dysphagia, unspecified (principal)
CPT/HCPCS: 74230; 92611

== ENCOUNTER 2023-03-26 09:19 | Outpatient (CLI) | payer MEDICARE, OTHER, SELFPAY ==
[2023-03-26] VITALS (9 sets, daily range): BP systolic 132–195; BP diastolic 65–85; PULSE 58–68; RESP 8–23; TEMP 36.2; O2SAT 95–100
--- NOTE | 2023-03-26 09:20 | DI.RAD.S_ITS ---
PROCEDURE: PAIN L/S FACET INJ/BLK 1ST SUSY INDICATIONS: SPONDYLOSIS COMPARISON: None. FINDINGS: Fluoroscopic spot filming was performed to verify placement of spinal needles bilaterally at L3, L4, and L5-4 multilevel bilateral medial branch block. IMPRESSION: Imaging guidance utilized for multilevel bilateral medial branch block procedure performed by the referring interventional pain physician. Dictated by: Brad Wilcox M.D. on 03/26/2023 at 14:58 Approved by: Brad Wilcox M.D. on 03/26/2023 at 14:59
[2023-03-26] MEDS: BUPIVACAINE 0.5% (PF) 10 ML VIAL 5 ML INJ (10:07)
[2023-03-26] MEDS: iopamidoL 15 ML VIAL 3 ML INJ (10:08)
[2023-03-26] MEDS: MIDAZOLAM 2 MG/2 ML VIAL 1 MG IV (10:09)
--- NOTE | 2023-03-26 12:07 | P.PCN_ITS ---
Date/Time/Diagnoses Date of procedure: 03/26/23 Time of procedure: 10:00 Procedure Notes Physician: Kannan Connor Total Fluoroscopy time (seconds): 14 Total sedation minutes: 6 Procedure in detail & Post-procedure care: Bilateral L3, 4, 5 Lumbar Medial Branch Blocks Indications: Sung is presenting for treatment of lumbar spondylosis with low back pain. Preoperative diagnosis: Lumbar spondylosis Postoperative diagnosis: Same Pre-procedure History: Patient demonstrates today moderate to severe non- radicular back pain without neurologic deficit aggravated by hyperextension yes Back pain greater than leg pain? yes Patient today has tenderness over the suspected joint(s) yes History of post-traumatic injury? no Hypertrophic arthropathy yes Back pain associated with suspected motion segment instability, hypermobility or pseudoarthrosis no Pre-testing pain score (VAS): 4/10 Focused Examination: Ax3 Mood and affect are normal Vital Signs: VSS ASA: 3 Consent: Following review of allergies and potential side effects/complications, including, but not necessarily limited to, infection, allergic reaction, local tissue breakdown, stroke, temporary or permanent nerve injury, paralysis, and possible , the patient indicated that they understood and agreed to proceed.? An informed consent document was signed by the patient, witnessed by a nurse and placed in the patient's chart.? Additionally, other treatment options including medications and physical therapy were reviewed with the patient. All questions were answered. Site was then marked. Anesthesia: After review of previous anesthetic history and IV conscious sedation, the patient was deemed safe to proceed with today's procedure with IV conscious sedation. IV sedation was accomplished with midazolam 1 mg administered by the RN after order by Dr. Connor. Sedation was titrated to patient comfort during the course of the procedure. Patient remained responsive to all verbal commands. Position: Prone Monitoring: NIBP, Pulse oximetry, 3 lead EKG Needle used: 22 ga 3.5 inch spinal needle Contrast: Isovue 300M Injectate: 0.5% bupivacaine 1 mL per site Procedure: The patient was brought into the procedure room and positioned into the prone position. Skin was prepped with a Chloraprep solution, allowed to air dry, and then draped in sterile fashion.? The right L4-5 and L5-S1 facet joints were visually identified with fluoroscopy. Lidocaine 1% was used to anesthetize the skin over each target destination with a 25ga needle. A 22 ga, 3.5 inch spinal needle was advanced to the location of the medial branch at the junction of the superior articular process and the transverse process at L4,5 and the base of the SAP of the sacrum using intermittent fluoroscopy in the AP view. Isovue 300M contrast 0.2ml was injected at each level outlining the medial borders for each level and the base of the SAP of the sacrum in the AP and lateral views. There was no evidence of vascular or intrathecal uptake. The above injectate was slowly injected at each target destination. The left L4-5 and L5-S1 facet joints were visually identified with fluoroscopy. Lidocaine 1% was used to anesthetize the skin over each target destination with a 25ga needle. A 22 ga, 3.5 inch spinal needle was advanced to the location of the medial branch at the junction of the superior articular process and the transverse process at L4,5 and the base of the SAP of the sacrum using intermittent fluoroscopy in the AP view. Isovue 300M contrast 0.2ml was injected at each level outlining the medial borders for each level and the base of the SAP of the sacrum in the AP and lateral views. There was no evidence of vascular or intrathecal uptake. The above injectate was slowly injected at each target destination. At the end of the procedure the needles were withdrawn and Band- Aids were applied for a dressing. Post Procedure: Patient was taken to the recovery and monitored. The patient was provided a Pain Log to continue to record the patient's response to the target- specific procedure prior to the patient's follow-up visit with the referring physician. Patient was stable upon discharge. Detailed post procedure instructions were provided. Patient was asked to call in the event of worsening pain, fever, weakness, numbness or bladder or bowel incontinence. Based on the medial branches blocked today, if the patient meets insurance criteria for radiofrequency, the treatment should result in the denervation of the bilateral L4-5 and L5-S1 facet joint nerves. We would expect to denervate a total of 4 facets during the radiofrequency ablation.
== END 2023-03-26 10:45 | disposition home or self-care (01) ==
LOC: RAD 09:20
PROVIDERS: PCP Family Medicine; Referring Provider Anesthesiology; Visit Provider Anesthesiology
DX: M47.816 Spondylosis without myelopathy or radiculopathy, lumbar region (principal)
CPT/HCPCS: 64493; 64494; J2250

== ENCOUNTER → 2023-04-18 10:58 | Outpatient (CLI) | payer MEDICARE, OTHER, SELFPAY ==
[2023-04-18 12:34] LABS: Add Manual Diff / Slide Review NO; Basophils Absolute Auto 100 /uL (0-100); Eosinophils Absolute Auto 300 /uL (0-450); Eosinophils Percent Auto 4.1 % (2-4); Hemoglobin 11.3 g/dL (13.5-17.5); Lymphocytes Absolute Auto 1100 /uL (1100-4500); Lymphocytes Percent Auto 17.6 % (25-40); Mean Corpuscular HGB Conc 34.3 % (30-36); Mean Corpuscular Hemoglobin 32.8 PG (26-34); Mean Corpuscular Volume 95.4 fL (80-100); Monocytes Absolute Auto 500 /uL (0-900); Monocytes Percent Auto 8.5 % (3-14); Neutrophils Absolute Auto 4400 /uL (1500-7000); Neutrophils Percent Auto 68.8 % (50-75); Platelet Count 211 X10^3/uL (150-400); Red Blood Cell Count 3.46 X10^6/uL (4.5-5.9); Red Cell Distribution Width 13.8 % (11.6-14.8); White Blood Cell Count 6.4 X10^3/uL (4.5-11.0)
[2023-04-18 13:20] LABS: Alanine Aminotransferase 15 IU/L (<50); Albumin 3.4 g/dL (3.5-5.0); Albumin Globulin Ratio 1.1 (1.0-2.8); Alkaline Phosphatase 54 U/L (38-126); Aspartate Aminotransferase 28 IU/L (17-59); BUN Creatinine Ratio 20.5 (6-22); Bilirubin Total 0.8 mg/dL (0.2-1.3); Blood Urea Nitrogen 16 mg/dL (9-20); Calcium 9.3 mg/dL (8.4-10.2); Carbon Dioxide 29 mmol/L (22-32); Chloride 99 mmol/L (98-107); Cholesterol 129 mg/dL (140-199); Estimated Glomerular Filt Rate > 60 mL/min (>60); Globulin 3.2 g/dL (1.7-4.1); Glucose 81 mg/dL (80-110); HDL Cholesterol 38 mg/dL (40-60); HEMOLYSIS 16 (0-50); LDL Cholesterol Calculated 81 mg/dL (<100); Potassium 4.3 mmol/L (3.4-5.1); Sodium 132 mmol/L (137-145); Total Protein 6.6 g/dL (6.3-8.2); Triglycerides 50 mg/dL (35-150)
[2023-04-18 13:23] LABS: TSH w/ Reflex to FT4 2.01 uIU/mL (0.47-4.68)
[2023-04-18 13:49] LABS: Prostate Specific Antigen Scrn 0.391 ng/mL (0.1-4.0)
== END ==
PROVIDERS: PCP Family Medicine; Referring Provider Family Medicine; Visit Provider Family Medicine
DX: Z79.01 Long term (current) use of anticoagulants (principal); I10 Essential (primary) hypertension; Z12.5 Encounter for screening for malignant neoplasm of prostate; G89.4 Chronic pain syndrome; I48.91 Unspecified atrial fibrillation; M06.9 Rheumatoid arthritis, unspecified
CPT/HCPCS: 36415; 80053; 80061; 84443; 85025; G0103

== ENCOUNTER 2023-04-18 14:27 | Outpatient (CLI) | payer MEDICARE, OTHER, SELFPAY ==
[2023-04-18] VITALS (8 sets, daily range): BP systolic 147–197; BP diastolic 68–82; PULSE 60–67; RESP 12–22; TEMP 36.7; O2SAT 98–100
--- NOTE | 2023-04-18 14:33 | DI.RAD.S_ITS ---
PROCEDURE: PAIN L INTERLAMINAR/CAUDAL INJ INDICATIONS: RADICULOPATHY COMPARISON: None. FINDINGS: Fluoroscopic spot filming was performed to verify placement of spinal needles at the L2-3 level(s), as labeled on the films. Appropriate location(s) of the needle tip(s) was confirmed by injection of iodinated contrast. IMPRESSION: Fluoro guidance was provided intraoperatively for L2-3 intralaminar epidural steroid injection performed by ordering physician. Dictated by: Jacob Yan M.D. on 04/18/2023 at 16:03 Approved by: Jacob Yan M.D. on 04/18/2023 at 16:29
[2023-04-18] MEDS: MIDAZOLAM 2 MG/2 ML VIAL 0.5 MG IV ×2 (15:00→15:07)
[2023-04-18] MEDS: iopamidoL 15 ML VIAL 3 ML INJ (15:09)
[2023-04-18] MEDS: DEXAMETHASONE 10 MG/ML VIAL INJ (15:09)
--- NOTE | 2023-04-18 16:45 | P.PCN_ITS ---
Date/Time/Diagnoses Date of procedure: 04/18/23 Time of procedure: 15:00 Procedure Notes Physician: Kannan Connor Total Fluoroscopy time (seconds): 27 Total sedation minutes: 22 Procedure in detail & Post-procedure care: L2-3 Interlaminar Epidural Steroid Injection Indications: Sung is presenting for treatment of lumbar radiculopathy with low back and leg pain. Preoperative diagnosis: Lumbar radiculopathy Postoperative diagnosis: Same Focused Examination: Ax3 Mood and affect are normal Vital Signs: VSS ASA: 3 Warfarin held for 5 days. INR: 1.2 Consent: Following review of allergies and potential side effects/complications, including, but not necessarily limited to, infection, allergic reaction, local tissue breakdown, stroke, temporary or permanent nerve injury, paralysis, and possible , the patient indicated that they understood and agreed to proceed.? An informed consent document was signed by the patient, witnessed by a nurse and placed in the patient's chart.? Additionally, other treatment options including medications and physical therapy were reviewed with the patient. All questions were answered. Site was then marked. Anesthesia: After review of previous anesthetic history and IV conscious sedation, the patient was deemed safe to proceed with today's procedure with IV conscious sedation. IV sedation was accomplished with midazolam 1 mg administered by the RN after order by Dr. Connor. Sedation was titrated to patient comfort during the course of the procedure. Patient remained responsive to all verbal commands. Position: Prone Monitoring: NIBP, Pulse oximetry, 3 lead EKG Needle used: 18 G 3.5? Tuohy Contrast: Isovue 300M Injectate: Dexamethasone 10 mg with 1% lidocaine 2 mL Technique: The skin was prepped with chloraprep and then draped in a sterile fashion. Time out was performed as per protocol. Oxygen applied via NC. Skin and subcutaneous structures of the needle entry site was then infiltrated with 3 mL of lidocaine 1%. Under AP, lateral and contralateral oblique fluoroscopic control, the Tuohy needle was guided into the L2-3 epidural space. The space was accessed with loss of resistance technique. Isovue 300M was then injected and the spread was consistent with the epidural space. There was no evidence for intravascular or intrathecal uptake. After negative aspiration, the above- mentioned injectate was then slowly administered and the needle withdrawn. The patient expressed no unusual discomfort or paresthesias during the injection. Band-Aids applied to injection sites. EBL: less than 1 ml Complications: None Post Procedure: Patient was taken to the recovery and monitored. The patient was provided a Pain Log to continue to record the patient's response to the target- specific procedure prior to the patient's follow-up visit with the referring physician. Patient was stable upon discharge. Detailed post procedure instructions were provided. Patient was asked to call in the event of worsening pain, fever, weakness, numbness or bladder or bowel incontinence.
== END 2023-04-18 15:43 | disposition home or self-care (01) ==
LOC: RAD 14:28
PROVIDERS: PCP Family Medicine; Referring Provider Anesthesiology; Visit Provider Anesthesiology
DX: M54.16 Radiculopathy, lumbar region (principal); M06.9 Rheumatoid arthritis, unspecified; G89.4 Chronic pain syndrome; I48.91 Unspecified atrial fibrillation; I10 Essential (primary) hypertension; Z12.5 Encounter for screening for malignant neoplasm of prostate; Z79.01 Long term (current) use of anticoagulants
CPT/HCPCS: 36415; 62323; 80053; 80061; 84443; 85025; 99152; G0103; J1100; J2250

== ENCOUNTER → 2023-05-04 11:07 | Outpatient (CLI) | payer MEDICARE, OTHER, SELFPAY ==
--- NOTE | 2023-05-04 11:30 | DI.CT.S_ITS ---
PROCEDURE: CT CHEST WO CON INDICATIONS: pulmonary nodules, calcified plaques TECHNIQUE: Noncontrast 5 mm thick sections acquired from the pulmonary apices to the posterior costophrenic angles. 1 mm lung window, 5 mm thick coronal and sagittal and 7 mm axial MIP reformats were then acquired. For radiation dose reduction, the following was used: automated exposure control, adjustment of mA and/or kV according to patient size. COMPARISON: [facility], CT, CT CHEST WO CON, 01/17/2023, 9:59. FINDINGS: Image quality: Excellent. Lungs and pleura: The 4 mm left lower lobe pulmonary nodule on previous image 210/3 has resolved. Again noted is right basilar bronchial wall thickening and mild bronchiectasis and volume loss with tree-in-bud opacities, not significantly changed. Ill-defined nodularity and subsolid nodularity is, in an appearance suggesting an inflammatory or infectious process, have developed in the posterior right upper lobe. Reference images 158 through 181 of series 3. No pleural effusions or pneumothorax. Calcified pleural plaques are again noted. Central and peripheral airways are patent and normal in caliber. Mediastinum: Mild cardiomegaly. No pericardial effusion. Coronary artery calcifications. No mediastinal adenopathy by size criteria. Thoracic aorta and central pulmonary arteries are normal in size. Esophagus is normal in caliber. No hiatal hernia. Bones and chest wall: No suspicious bony lesions. No vertebral body compression fractures. No axillary or supraclavicular adenopathy by size criteria. No thyroid nodules which require sonographic follow up, per consensus guidelines. Upper Abdomen: Visualized upper abdominal solid organs and bowel loops appear normal in the absence of contrast. IMPRESSION: 1. A 4 mm left lower lobe pulmonary nodule has resolved. 2. Unchanged findings in the right lower lobe, with bronchial wall thickening, mild bronchiectasis, and volume loss. 3. Developing ill-defined multi nodularity in the posterior right upper lobe, in a pattern suggesting inflammation or infection. 4. Mild cardiomegaly, coronary artery calcifications. 5. Calcified pleural plaques. Dictated by: Brad Wilcox M.D. on 05/04/2023 at 14:25 Approved by: Brad Wilcox M.D. on 05/04/2023 at 14:31
== END ==
PROVIDERS: PCP Family Medicine; Referring Provider Family Medicine; Visit Provider Family Medicine
DX: J47.9 Bronchiectasis, uncomplicated (principal); J92.9 Pleural plaque without asbestos; J43.9 Emphysema, unspecified; R91.8 Other nonspecific abnormal finding of lung field; I51.7 Cardiomegaly
CPT/HCPCS: 71250

== ENCOUNTER 2023-10-17 10:00 | Outpatient (CLI) | payer MEDICARE, OTHER, SELFPAY ==
[2023-10-17] VITALS (9 sets, daily range): BP systolic 148–194; BP diastolic 65–91; PULSE 48–69; RESP 12–22; TEMP 36.9; O2SAT 92–100
--- NOTE | 2023-10-17 10:30 | DI.RAD.S_ITS ---
PROCEDURE: PAIN L/S FACET INJ/BLK 1ST SUSY INDICATIONS: LUMBAR SPONDYLOSIS COMPARISON: MR, MR LUMBAR SPINE WO CON, 01/09/2023, 9:36. CR, XR LUMBAR SPINE MIN 4V, 12/28/2022, 8:24. FINDINGS: Fluoroscopic spot filming was performed to verify placement of spinal needles at the L3, L4 and L5 level(s) bilaterally, as labeled on the films. Appropriate location(s) of the needle tip(s) was confirmed by injection of iodinated contrast. IMPRESSION: Fluoroscopy for pain management. Dictated by: Stephanie Her M.D. on 10/17/2023 at 17:06 Approved by: Stephanie Her M.D. on 10/17/2023 at 17:07
[2023-10-17] MEDS: MIDAZOLAM 2 MG/2 ML VIAL 0.5 MG IV ×2 (10:40→10:47)
[2023-10-17] MEDS: LIDOCAINE 2% INJ MDV 20ML 5 ML INJ (10:48)
[2023-10-17] MEDS: iopamidoL 15 ML VIAL 3 ML INJ (10:49)
--- NOTE | 2023-10-17 12:16 | P.PCN_ITS ---
Date/Time/Diagnoses Date of procedure: 10/17/23 Time of procedure: 10:30 Procedure Notes Physician: Kannan Connor Total Fluoroscopy time (seconds): 19 Total sedation minutes: 14 Procedure in detail & Post-procedure care: Bilateral L3, 4, 5 Lumbar Medial Branch Blocks Indications: Sung is presenting for treatment of lumbar spondylosis with low back pain. Preoperative diagnosis: Lumbar spondylosis Postoperative diagnosis: Same Pre-procedure History: Patient demonstrates today moderate to severe non- radicular back pain without neurologic deficit aggravated by hyperextension yes Back pain greater than leg pain? yes Patient today has tenderness over the suspected joint(s) yes History of post-traumatic injury? no Hypertrophic arthropathy yes Back pain associated with suspected motion segment instability, hypermobility or pseudoarthrosis no Focused Examination: Ax3 Mood and affect are normal Vital Signs: VSS ASA: 3 Consent: Following review of allergies and potential side effects/complications, including, but not necessarily limited to, infection, allergic reaction, local tissue breakdown, stroke, temporary or permanent nerve injury, paralysis, and possible , the patient indicated that they understood and agreed to proceed.? An informed consent document was signed by the patient, witnessed by a nurse and placed in the patient's chart.? Additionally, other treatment options including medications and physical therapy were reviewed with the patient. All questions were answered. Site was then marked. Anesthesia: After review of previous anesthetic history and IV conscious sedation, the patient was deemed safe to proceed with today's procedure with IV conscious sedation. IV sedation was accomplished with midazolam 1 mg administered by the RN after order by Dr. Connor. Sedation was titrated to patient comfort during the course of the procedure. Patient remained responsive to all verbal commands. Position: Prone Monitoring: NIBP, Pulse oximetry, 3 lead EKG Needle used: 22 ga 3.5 inch spinal needle Contrast: Isovue 300M Injectate: 2% lidocaine 1 mL per site Procedure: The patient was brought into the procedure room and positioned into the prone position. Skin was prepped with a Chloraprep solution, allowed to air dry, and then draped in sterile fashion.? The right L4-5 and L5-S1 facet joints were visually identified with fluoroscopy. Lidocaine 1% was used to anesthetize the skin over each target destination with a 25ga needle. A 22 ga, 3.5 inch spinal needle was advanced to the location of the medial branch at the junction of the superior articular process and the transverse process at L4,5 and the base of the SAP of the sacrum using intermittent fluoroscopy in the AP view. Isovue 300M contrast 0.2ml was injected at each level outlining the medial borders for each level and the base of the SAP of the sacrum in the AP and lateral views. There was no evidence of vascular or intrathecal uptake. The above injectate was slowly injected at each target destination. The left L4-5 and L5-S1 facet joints were visually identified with fluoroscopy. Lidocaine 1% was used to anesthetize the skin over each target destination with a 25ga needle. A 22 ga, 3.5 inch spinal needle was advanced to the location of the medial branch at the junction of the superior articular process and the transverse process at L4,5 and the base of the SAP of the sacrum using intermittent fluoroscopy in the AP view. Isovue 300M contrast 0.2ml was injected at each level outlining the medial borders for each level and the base of the SAP of the sacrum in the AP and lateral views. There was no evidence of vascular or intrathecal uptake. The above injectate was slowly injected at each target destination. At the end of the procedure the needles were withdrawn and Band- Aids were applied for a dressing. Post Procedure: Patient was taken to the recovery and monitored. The patient was provided a Pain Log to continue to record the patient's response to the target- specific procedure prior to the patient's follow-up visit with the referring physician. Patient was stable upon discharge. Detailed post procedure instructions were provided. Patient was asked to call in the event of worsening pain, fever, weakness, numbness or bladder or bowel incontinence. Based on the medial branches blocked today, if the patient meets insurance criteria for radiofrequency, the treatment should result in the denervation of the bilateral L4-5 and L5-S1 facet joint nerves. We would expect to denervate a total of 4 facets during the radiofrequency ablation.
== END 2023-10-17 11:21 | disposition home or self-care (01) ==
LOC: RAD 10:01
PROVIDERS: PCP Family Medicine; Referring Provider Anesthesiology; Visit Provider Anesthesiology
DX: M47.816 Spondylosis without myelopathy or radiculopathy, lumbar region (principal)
CPT/HCPCS: 64493; 64494; 99152; J2250

== ENCOUNTER 2023-11-07 07:40 | Outpatient (CLI) | payer MEDICARE, OTHER, SELFPAY ==
[2023-11-07] VITALS (11 sets, daily range): BP systolic 158–191; BP diastolic 65–88; PULSE 57–64; RESP 9–22; TEMP 36.4; O2SAT 98–100
--- NOTE | 2023-11-07 08:00 | DI.RAD.S_ITS ---
PROCEDURE: PAIN L/S MED/LAT N RFA BILAT INDICATIONS: LUMBAR SPONDYLOSIS COMPARISON: [facility], XA, PAIN L/S FACET INJ/BLK 1ST SUSY, 10/17/2023, 10:40. FINDINGS: Fluoroscopic spot filming was performed to verify placement of spinal needles at the bilateral L3, L4, L5 level(s), as labeled on the films. Appropriate location(s) of the needle tip(s) was confirmed by injection of iodinated contrast. IMPRESSION: Intraoperative guidance provided. Dictated by: Adrián Weller M.D. on 11/07/2023 at 9:55 Approved by: Adrián Weller M.D. on 11/07/2023 at 10:00
[2023-11-07] MEDS: MIDAZOLAM 2 MG/2 ML VIAL 0.5 MG IV (08:19)
[2023-11-07] MEDS: BUPIVACAINE 0.5% (PF) 10 ML VIAL 5 ML INJ (08:36)
[2023-11-07] MEDS: LIDOCAINE 2% INJ MDV 20ML 5 ML INJ (08:36)
--- NOTE | 2023-11-07 10:53 | P.PCN_ITS ---
Date/Time/Diagnoses Date of procedure: 11/07/23 Time of procedure: 08:00 Procedure Notes Physician: Kannan Connor Total Fluoroscopy time (seconds): 29 Total sedation minutes: 28 Procedure in detail & Post-procedure care: Bilateral L3, 4, 5 Lumbar Medial Branch Radio Frequency Ablation Indications: Sung presents for treatment of lumbar spondylosis with low back pain. Preoperative diagnosis: Lumbar spondylosis Postoperative diagnosis: Same Focused Examination: Ax3 Mood and affect are normal Vital Signs: VSS ASA: 3 Consent: Following review of allergies and potential side effects/complications, including, but not necessarily limited to, infection, allergic reaction, local tissue breakdown, stroke, temporary or permanent nerve injury, paralysis, and possible , the patient indicated that they understood and agreed to proceed.? An informed consent document was signed by the patient, witnessed by a nurse and placed in the patient's chart.? Additionally, other treatment options including medications and physical therapy were reviewed with the patient. All questions were answered. Site was then marked. Position: Prone Monitoring: NIBP, Pulse oximetry, 3 lead EKG Needle used: 18 guage, 100 mm, 10 mm active tip Anesthesia: Local with IV sedation. After review of previous anesthetic history and IV conscious sedation, the patient was deemed safe to proceed with today's procedure with IV conscious sedation. IV sedation was accomplished with midazolam 0.5 mg administered by the RN after order by Dr. Connor. Sedation was titrated to patient comfort during the course of the procedure. Patient remained responsive to all verbal commands. Procedure: The patient was brought into the procedure room and positioned into the prone position. Skin was prepped with a Chloraprep solution, allowed to air dry, and then draped in sterile fashion.? The right L4-5 and L5-S1 facet joints were visually identified with fluoroscopy. Lidocaine 1% was used to anesthetize the skin over each target destination with a 25ga needle. An 18 ga, 100 mm RFA needle with a 10 mm active tip was advanced to the location of the medial branch at the junction of the superior articular process and the transverse process at L4,5 and the base of the SAP of the sacrum using intermittent fluoroscopy in the oblique view with caudal tilt. AP and lateral radiographs were taken to confirm proper needle placement. No paresthesias were noted. The stylet was removed and the radiofrequency probe was inserted through the cannula. Each level was individually tested.? Motor stimulation up to 2V elicited multifidus twitching in the lumbar spine. There was no motor stimulation in the lower extremities. After negative aspiration, 1ml of 2% lidocaine was injected at each of the levels and radiofrequency denervation carried out using 80 degrees Celsius for 90 seconds. The needles were then rotated 90 degrees and a second ablation was performed at 80 degrees Celsius for 90 seconds. Next, the left L4-5 and L5-S1 facet joints were visually identified with fluoroscopy. Lidocaine 1% was used to anesthetize the skin over each target destination with a 25ga needle. An 18 ga, 100 mm RFA needle with a 10 mm active tip was advanced to the location of the medial branch at the junction of the superior articular process and the transverse process at L4,5 and the base of the SAP of the sacrum using intermittent fluoroscopy in the oblique view with caudal tilt. AP and lateral radiographs were taken to confirm proper needle placement. No paresthesias were noted. The stylet was removed and the radiofrequency probe was inserted through the cannula. Each level was individually tested. Motor stimulation up to 2V elicited multifidus twitching in the lumbar spine. There was no motor stimulation in the lower extremities. After negative aspiration, 1ml of 2% lidocaine was injected at each of the levels and radiofrequency denervation carried out using 80 degrees Celsius for 90 seconds. The needles were then rotated 90 degrees and a second ablation was performed at 80 degrees Celsius for 90 seconds. After ablation, a mixture of 10 mg dexamethasone with 0.5% bupivacaine 5 mL was injected in equal amounts among the sites (1 mL per site). At the end of the procedure the needles were withdrawn and Band-Aids were applied for a dressing. This procedure is expected to denervate the bilateral L4-5 and L5-S1 facet joints. Post Procedure: Patient was taken to the recovery and monitored. The patient was provided a Pain Log to continue to record the patient's response to the target- specific procedure prior to the patient's follow-up visit with the referring physician. Patient was stable upon discharge. Detailed post procedure instructions were provided. Patient was asked to call in the event of worsening pain, fever, weakness, numbness or bladder or bowel incontinence. Complications: None
== END 2023-11-07 09:11 | disposition home or self-care (01) ==
LOC: RAD 07:40
PROVIDERS: PCP Family Medicine; Referring Provider Anesthesiology; Visit Provider Anesthesiology
DX: M47.816 Spondylosis without myelopathy or radiculopathy, lumbar region (principal)
CPT/HCPCS: 64494; 64635; 64636; 99152; 99153; J2250

== ENCOUNTER → 2024-01-02 10:24 | Outpatient (CLI) | payer MEDICARE, OTHER, SELFPAY ==
--- NOTE | 2024-01-02 10:25 | DI.RAD.S_ITS ---
PROCEDURE: XR CHEST 2V INDICATIONS: concerns for pneumonia, chronic cough TECHNIQUE: 2 views of the chest were acquired. COMPARISON: [facility], CR, XR CHEST 2V, 03/28/2022, 16:14. FINDINGS: Surgical changes and devices: Left total shoulder arthroplasty. Lungs and pleura: Bilateral interstitial opacities. Hazy opacity within the right lung base. Small bilateral pleural effusions, best appreciated on the lateral view. No pneumothorax. Flattening of the diaphragm. Mediastinum: Unchanged mild enlargement of the cardiomediastinal silhouette. Bones and chest wall: No suspicious bony abnormalities. Soft tissues appear unremarkable. IMPRESSION: 1. Constellation of findings are concerning for congestive heart failure. 2. Emphysematous changes. Dictated by: Juan Son M.D. on 01/02/2024 at 15:58 Approved by: Juan Son M.D. on 01/02/2024 at 16:06
[2024-01-02 12:23] LABS: INR 6.9 (0.9-1.3)
== END ==
PROVIDERS: PCP Family Medicine; Referring Provider Family Medicine; Visit Provider Family Medicine
DX: R06.02 Shortness of breath (principal); J43.9 Emphysema, unspecified; Z79.01 Long term (current) use of anticoagulants; I48.0 Paroxysmal atrial fibrillation; R05.9 Cough, unspecified
CPT/HCPCS: 36415; 71046; 85610

== ENCOUNTER → 2024-01-26 09:43 | Outpatient (CLI) | payer MEDICARE, OTHER, SELFPAY ==
[2024-01-26 11:22] LABS: Alanine Aminotransferase 13 IU/L (<50); Albumin 3.2 g/dL (3.5-5.0); Alkaline Phosphatase 72 U/L (38-126); Aspartate Aminotransferase 47 IU/L (17-59); Bilirubin Total 0.9 mg/dL (0.2-1.3); Blood Urea Nitrogen 10 mg/dL (9-20); Calcium 8.7 mg/dL (8.4-10.2); Carbon Dioxide 28 mmol/L (22-32); Chloride 96 mmol/L (98-107); Estimated Glomerular Filt Rate > 60 mL/min (>60); Globulin 3.3 g/dL (1.7-4.1); Glucose 97 mg/dL (80-110); HEMOLYSIS 39 (0-50); Potassium 3.8 mmol/L (3.4-5.1); Sodium 133 mmol/L (137-145); Total Protein 6.5 g/dL (6.3-8.2)
== END ==
PROVIDERS: PCP Family Medicine; Referring Provider Family Medicine; Visit Provider Family Medicine
DX: I11.0 Hypertensive heart disease with heart failure (principal); I50.9 Heart failure, unspecified; I48.91 Unspecified atrial fibrillation
CPT/HCPCS: 36415; 80053

== ENCOUNTER → 2024-02-11 09:10 | Outpatient (CLI) | payer MEDICARE, OTHER, SELFPAY ==
--- NOTE | 2024-02-11 09:12 | DI.ECHO.S_ITS ---
[facility]---------+ [facility] : : [address] : : [place] : : [id number] : : Phone: [phone] Echocardiogram Report + + :Name: FERNANDA MENDOZA Study Date: 02/11/2024 Height: 64 in : :[facility] ReadingLocation: Weight: 120 lb : : Gender: Male BSA: 1.6 m2 : :: 1940 Age: 83 yrs BP: 114/60 mmHg: :Reason For Study: CONGESTIVE HEART FAILURE : :Ordering Physician: HERMES, : :YADIRA Performed By: Anthony De La Garza : :Referring: YADIRA MIRZA : + + Interpretation Summary Moderate concentric left ventricular hypertrophy with ejection fraction 55- 60%. The left atrium is moderately dilated. Moderate to severe aortic stenosis. The calculated aortic valve area is 1.0 cm2. Mild to moderate aortic regurgitation. Mild mitral annular calcification. Moderate to severe mitral regurgitation. Comparison is made with the echocardiogram of 05/30/2014, aortic stenosis and mitral regurgitation have progressed. Procedure: A two-dimensional transthoracic echocardiogram with color flow and Doppler was performed. The study quality was technically adequate. Comparison is made with the echocardiogram of 05/30/2014. The heart rate ranged between 48-63 bpm during the study. The patient was in normal sinus rhythm during the exam. Left Ventricle: The left ventricle is normal in size. There is moderate concentric left ventricular hypertrophy. The ejection fraction is estimated to be 55-60%. There are no focal wall motion abnormalities. Diastolic function could not be accurately assessed due to confounding valvular disease. Right Ventricle: The right ventricle is normal in size and function. Atria: The left atrium is moderately dilated. Right atrial size is normal. The interatrial septum grossly appears intact with no obvious evidence for an atrial septal defect. Mitral Valve: The mitral valve is normal. There is mild mitral annular calcification. There is no mitral valve stenosis. There is moderate to severe mitral regurgitation. Aortic Valve: The aortic valve is trileaflet. There is moderate to severe aortic stenosis. The calculated aortic valve area is 1.0 cm2. The peak aortic velocity is 1.6 m/sec. The aortic valve mean gradient is 6.0 mmHg. There is mild to moderate aortic regurgitation. Tricuspid Valve: The tricuspid valve is not well visualized, but is grossly normal. There is no tricuspid stenosis. There is trace tricuspid regurgitation. Pulmonic Valve: The pulmonic valve is not well seen, but is grossly normal. There is no pulmonic valvular stenosis. There is no pulmonic valvular regurgitation. Great Vessels: The aortic root is normal size. The ascending aorta could not be visualized. The IVC is of normal diameter and collapses greater than 50% with a sniff. This suggests a low right atrial pressure of 3 mm Hg. Pericardium/ Pleura There is no pericardial effusion. There is no pleural effusion. MMode/2D Measurements & Calculations LVIDd: 4.4 cm LVOT diam: 2.1 cm LVIDs: 3.1 cm Ao root diam: 3.5 cm FS: 30.0 % IVSd: 1.3 cm LVPWd: 1.4 cm LV sauceda. diameter/BSA (cm/m^2): 2.8 LV sys. diameter/BSA (cm/m^2): 2.0 LA A2 area: 21.9 cm2 RA long axis: 4.7 cm LA A4 area: 19.0 cm2 RA area: 13.5 cm2 LA length (vol): 5.4 cm RA vol: 33.2 ml LA vol: 65.5 ml RA : 21.1 ml/m2 LA vol index: 41.6 ml/m2 IVC diam: 1.5 cm RVD1 (basal): 2.9 cm RVD2 (mid): 2.2 cm TAPSE: 1.5 cm Doppler Measurements & Calculations Ao V2 max: 157.1 cm/sec LVOT Max Travis: 51.3 cm/sec Ao V2 mean: 118.3 cm/sec LV V1 max P.1 mmHg Ao max P.9 mmHg LV V1 VTI: 11.1 cm Ao mean P.0 mmHg JANE(I,D): 1.0 cm2 Ao V2 VTI: 39.2 cm JANE(V,D): 1.2 cm2 sev ratio: 0.28 JANE indexed to BSA (cm^2/m^2): 0.65 MV E max travis: 107.4 cm/sec PA V2 max: 88.8 cm/sec MV A max travis: 35.2 cm/sec PA V2 mean: 63.7 cm/sec MV E/A: 3.0 PA mean P.8 mmHg Med Peak E' Travis: 8.0 cm/sec PA pr(Accel): 41.3 mmHg E/E' med: 13.5 Lat Peak E' Travis: 9.0 cm/sec E/E' lat: 12.0 E/e' average: 12.7 MV dec time: 0.21 sec SV(LVOT): 40.2 ml Electronically signed by: Cecily raymond [place] Physician:02/11/2024 12:16 PM
== END ==
LOC: ECHO 09:11
PROVIDERS: PCP Family Medicine; Referring Provider Family Medicine; Visit Provider Family Medicine
DX: I50.9 Heart failure, unspecified (principal); I48.91 Unspecified atrial fibrillation; I08.0 Rheumatic disorders of both mitral and aortic valves
CPT/HCPCS: 93306

== ENCOUNTER → 2024-03-26 09:59 | Outpatient (CLI) | payer MEDICARE, OTHER, SELFPAY ==
--- NOTE | 2024-03-26 10:00 | DI.US.S_ITS ---
PROCEDURE: US CAROTID DOPPLER BI INDICATIONS: LEFT CAROTID BRUIT TECHNIQUE: Color and pulse Doppler interrogation was performed of both carotid systems, with image documentation and velocity measurements. COMPARISON: None. FINDINGS: Stenosis calculations are based on SRU (Society of Radiologists in Ultrasound) criteria. Right side: Brachial blood pressure: 144/61 mm Hg. Common carotid artery peak systolic velocity: 71 cm/sec. Internal carotid artery peak systolic velocity: 68 cm/sec. Internal carotid artery end diastolic velocity: 14 cm/sec. External carotid artery peak systolic velocity: 49 cm/sec. ICA/CCA peak systolic ratio: 1.0 . Foster scale imaging description: Softener plaques are seen at the carotid bifurcation Percent internal carotid artery stenosis: Less than 50 . Vertebral artery: Flow direction is antegrade. Left side: Brachial blood pressure: 146/95 mm Hg. Common carotid artery peak systolic velocity: 65 cm/sec. Internal carotid artery peak systolic velocity: 82 cm/sec. Internal carotid artery end diastolic velocity: 15 cm/sec. External carotid artery peak systolic velocity: 64 cm/sec. ICA/CCA peak systolic ratio: 1.3 . Foster scale imaging description: Soft and hard plaques are seen at the carotid bifurcation Percent internal carotid artery stenosis: Less than 50 . Vertebral artery: Flow direction is antegrade. IMPRESSION: Less than 50 percent stenosis of the bilateral internal carotid arteries. Dictated by: Ricky Harris M.D. on 03/26/2024 at 13:17 Approved by: Ricky Harris M.D. on 03/26/2024 at 13:18
[2024-03-26 13:11] LABS: Alanine Aminotransferase 11 IU/L (<50); Albumin 3.2 g/dL (3.5-5.0); Albumin Globulin Ratio 1.1 (1.0-2.8); Alkaline Phosphatase 71 U/L (38-126); Aspartate Aminotransferase 22 IU/L (17-59); Bilirubin Total 0.7 mg/dL (0.2-1.3); Blood Urea Nitrogen 8 mg/dL (9-20); Calcium 8.9 mg/dL (8.4-10.2); Carbon Dioxide 32 mmol/L (22-32); Chloride 96 mmol/L (98-107); Estimated Glomerular Filt Rate > 60 mL/min (>60); Globulin 2.9 g/dL (1.7-4.1); Glucose 97 mg/dL (80-110); HEMOLYSIS < 15 (0-50); Potassium 3.9 mmol/L (3.4-5.1); Sodium 133 mmol/L (137-145); Total Protein 6.1 g/dL (6.3-8.2)
== END ==
PROVIDERS: PCP Family Medicine; Referring Provider Internal Medicine; Visit Provider Internal Medicine
DX: I65.23 Occlusion and stenosis of bilateral carotid arteries (principal); R09.89 Other specified symptoms and signs involving the circulatory and respiratory systems; I05.0 Rheumatic mitral stenosis; I35.0 Nonrheumatic aortic (valve) stenosis; G89.4 Chronic pain syndrome; I48.91 Unspecified atrial fibrillation; I10 Essential (primary) hypertension; Z79.01 Long term (current) use of anticoagulants
CPT/HCPCS: 36415; 80053; 93880

== ENCOUNTER → 2024-05-22 08:54 | Outpatient (CLI) | payer MEDICARE, OTHER, SELFPAY | PROVIDERS: PCP Family Medicine; Visit Provider Urology | DX: N40.1 Benign prostatic hyperplasia with lower urinary tract symptoms (principal); N13.8 Other obstructive and reflux uropathy | CPT/HCPCS: 87086 ==

== ENCOUNTER → 2024-07-07 14:16 | Outpatient (CLI) | payer MEDICARE, OTHER, SELFPAY ==
[2024-07-07 15:01] LABS: Add Manual Diff / Slide Review NO; Basophils Absolute Auto 0 /uL (0-100); Basophils Percent Auto 0.3 % (0-2); Eosinophils Absolute Auto 100 /uL (0-450); Eosinophils Percent Auto 1.1 % (2-4); Hematocrit 30.5 % (41-53); Hemoglobin 10.5 g/dL (13.5-17.5); Lymphocytes Absolute Auto 1000 /uL (1100-4500); Lymphocytes Percent Auto 11.3 % (25-40); Mean Corpuscular HGB Conc 34.4 % (30-36); Mean Corpuscular Volume 92.9 fL (80-100); Monocytes Absolute Auto 500 /uL (0-900); Monocytes Percent Auto 5.8 % (3-14); Neutrophils Absolute Auto 7200 /uL (1500-7000); Neutrophils Percent Auto 81.5 % (50-75); Platelet Count 262 X10^3/uL (150-400); Red Blood Cell Count 3.28 X10^6/uL (4.5-5.9); Red Cell Distribution Width 14.4 % (11.6-14.8); White Blood Cell Count 8.8 X10^3/uL (4.5-11.0)
[2024-07-07 15:31] LABS: Alanine Aminotransferase 15 IU/L (<50); Alkaline Phosphatase 74 U/L (38-126); Aspartate Aminotransferase 25 IU/L (17-59); BUN Creatinine Ratio 15.4 (6-22); Bilirubin Total 0.7 mg/dL (0.2-1.3); Blood Urea Nitrogen 14 mg/dL (9-20); Calcium 8.7 mg/dL (8.4-10.2); Carbon Dioxide 28 mmol/L (22-32); Chloride 98 mmol/L (98-107); Estimated Glomerular Filt Rate > 60 mL/min (>60); Globulin 3.1 g/dL (1.7-4.1); Glucose 97 mg/dL (80-110); HEMOLYSIS 17 (0-50); Potassium 4.2 mmol/L (3.4-5.1); Sodium 132 mmol/L (137-145); Total Protein 6.1 g/dL (6.3-8.2)
[2024-07-07 15:51] LABS: TSH w/ Reflex to FT4 2.99 uIU/mL (0.47-4.68)
[2024-07-07 16:10] LABS: Vitamin B12 965 pg/mL (239-931)
== END ==
PROVIDERS: PCP Family Medicine; Referring Provider Family Medicine; Visit Provider Family Medicine
DX: I48.91 Unspecified atrial fibrillation (principal); I10 Essential (primary) hypertension; R41.3 Other amnesia
CPT/HCPCS: 36415; 80053; 82607; 84443; 85025

== ENCOUNTER → 2024-07-17 12:00 | Outpatient (CLI) | payer MEDICARE, OTHER, SELFPAY ==
[2024-07-17 12:48] LABS: INR 1.8 (0.9-1.3); Prothrombin Time 20.3 SECONDS (9.4-12.5)
[2024-07-17 12:59] LABS: HEMOLYSIS < 15 (0-50); Iron 63 ug/dL (49-181)
[2024-07-17 13:12] LABS: Percent Iron Saturation 36 % (20-50); Total Iron Binding Capacity 177 ug/dL (261-462); Transferrin 118 mg/dL (206-381)
[2024-07-17 13:34] LABS: Ferritin 269 ng/mL (18-464)
== END ==
PROVIDERS: PCP Family Medicine; Referring Provider Family Medicine; Visit Provider Family Medicine
DX: D64.9 Anemia, unspecified (principal); Z79.01 Long term (current) use of anticoagulants; I48.0 Paroxysmal atrial fibrillation
CPT/HCPCS: 36415; 82728; 83540; 83550; 85610